=== PATIENT | male | born 1940 | race Caucasian/White ===

== ENCOUNTER 2017-01-16 10:59 | Emergency (ER) | payer MEDICARE ==
[~2017-01-16] VITALS: Ht 172.7 cm; Wt 77.3 kg
[2017-01-16 10:59] VITALS: Ht 172.7 cm; Wt 77.3 kg
[~2017-01-16 10:59] MED LIST: AMIODARONE 150 MG INJ ONE; ATROPINE 1 MG/10 ML SYRINGE ONE; CA CHLORIDE 10% 10 ML SYRINGE ONE; EPINEPHrine 100 MCG/10 ML SYG IV ONE; MAGNESIUM SULFATE 1 GM/100 ML D5W IVPB ONE; NA BICARBONATE 8.4% 50 ML SYG ONE
--- NOTE | 2017-01-16 12:28 | ERA ---
ER Documentation Chief Complaint Date/Time DATE: 01/16/17 TIME: 12:14 Chief Complaint BROUGHT IN VIA EMS DUE TO CARDIAC ARREST HPI This is a 76-year-old man with a history of end-stage kidney disease hemodialyzed 3 times per week (due for dialysis today), hypertension, CAD status post CABG, peripheral vascular disease, hypertension, diabetes mellitus, previous DE and cardiac arrest presents with EMS for cardiac arrest which developed en route. 911 was called because of agonal breathing while at a restaurant after eating breakfast with his . confirmed that they had finished eating breakfast when he developed discomfort to the neck and burning in his ears, he felt weak and appeared cyanotic. states he appeared dizzy and looked like he was going to faint. His symptoms improved momentarily while at the restaurant but then he stopped breathing and 911 found him agonal with weak pulses, they state when they put him in the ambulance he became cyanotic and lost pulses. They administered epinephrine and began chest compressions. ROS All systems reviewed and are negative except as per history of present illness. Medications Home Meds Unable to Obtain Active Prescriptions or Reported Meds Allergies Allergies: Coded Allergies: Unable to Assess (Verified Allergy, Severe, 01/16/17) PMhx/Soc Coronary artery disease, CABG, DE, hypertension, diabetes mellitus, previous cardiac arrest, end-stage kidney disease, peripheral vascular disease Physical Exam Vitals Vital Signs Date Time Temp Pulse Resp B/P Pulse Ox O2 Delivery O2 Flow Rate FiO2 01/16/17 10:59 0 0 97 Physical Exam GENERAL: Well-developed man, unresponsive, eyes closed, agonal breaths HEENT: Moist mucous membranes, diffuse pallor, pupils reactive, no cervical spine deformity, no tracheal deviation, no goiter NEURO: Eyes closed, pupils equal round reactive, no facial asymmetry or focal deficits, unresponsive nonverbal CARDIAC: No pulses palpated, no heart sounds auscultated LUNGS: Breath sounds clear with positive pressure ventilation ABDOMEN: Soft nontender, no guarding, no rigidity, no rebound, no psoas sign no obturator sign. SKIN: Diffuse pallor, dry, warm, no hematomas or lacerations EXTREMITIES: No clubbing cyanosis or edema, positive AV fistula to the right upper extremity, no peripheral pulses palpated PSYCH: Unable to assess Procedures/MDM Endotracheal Intubation by me: Pre assessment performed. See preceding note for details. Pre-oxygenation performed with 100% oxygen RSI: Performed w/o complication or hypoxic events. Medications as ordered. Blade: [Mac 4] ET Tube: 7.5 cm Depth: 22 cm at the lip Intubation confirmed by colorimetric CO2, equal breath sounds, quiet over the stomach. Immediate advanced cardiac life support with chest compressions were initiated, patient did not require paralysis or sedation for intubation. I established intraosseous access to the right anterior tibia. High-quality chest compressions were initiated and patient received multiple doses of epinephrine, sodium bicarbonate, calcium, and magnesium. Please refer to resuscitation log for full medications, dosages, times. Patient presented to the ED without palpable pulses and with agonal breathing, without adequate rise and fall the chest. He required immediate ACLS and initial rhythm strip was ventricular fibrillation. Overriding rhythm throughout the resuscitation was ventricular fibrillation and he received multiple cardioversion attempts at 200 J per attempt. During the resuscitation I established a second access site through the right femoral vein although the intraosseous line was working properly and had no issues. Central Line Placement by me: Patient consented, sterilely draped, full prep, gown, glove, mask, time out performed. Anesthesia: 1% lidocaine locally Location: Right femoral vein Device: Multiple lumen Technique: Seldinger technique. Secured with suture. Results: Venous return from all ports with easy saline flush. No complications. The entire Guide wire retrieved and disposed of. About 20 minutes into the resuscitation an electrocardiogram was performed and read by me, revealing sign wave morphology which cannot be interpreted any further. With continued chest compressions and IV medications he developed ventricular fibrillation which ultimately converted back to PEA, then sign wave morphology again, and then asystole. I spoke to family members and consoled them. Patient was pronounced by me 11:40 AM January 16, 2017. Critical Care: Time: 30 minutes, this was time separate from other billable procedures. Treatments/Evaluations: Close monitoring and treatment of unstable vital signs, cardiorespiratory, and neurologic status, while maintaining tight balance of fluid, respiratory, and cardiac interventions. Departure Diagnosis: Primary Impression: Cardiac arrest Condition: Critical CHEVY GOLDSMITH MD Jan 16, 2017 12:27
== END 2017-01-16 14:28 | disposition expired ==
LOC: E/R 10:59
DX: I46.9 Cardiac arrest, cause unspecified (principal); I12.0 Hypertensive chronic kidney disease with stage 5 chronic kidney disease or end stage renal disease; N18.6 End stage renal disease; I25.10 Atherosclerotic heart disease of native coronary artery without angina pectoris; E11.22 Type 2 diabetes mellitus with diabetic chronic kidney disease; Z98.61 Coronary angioplasty status; Z99.2 Dependence on renal dialysis
CPT/HCPCS: 31500; 36556; 92950; 99291; J0282; J0461; J3475